=== PATIENT | male | born 1990 | race Hispanic/Latino ===

== ENCOUNTER 2019-05-27 17:52 | Emergency (ER) | payer SELFPAY ==
[2019-05-27] MEDS ORDERED: DERMABOND SKIN ADHESIVE TOP ONE (19:41)
[2019-05-27] MEDS ORDERED: NA CHLORIDE 0.9% 1,000 ML ONE (21:10)
[2019-05-27 21:46] LABS: Absolute Lymphocytes (CBC) 1.7 K/uL (0.7-4.9); Basophils % 0.4 % (0-1.3); Hematocrit 46.2 % (39.6-49.0); MPV 7.5 fL (7.6-11.3); RBC Red Blood Cell Count 5.07 M/uL (4.33-5.43)
[2019-05-27 22:01] LABS: ALT/SGPT 19 U/L (12-78); AST/SGOT 19 U/L (15-37); Albumin 4.2 g/dL (3.4-5.0); Alkaline Phosphatase 56 U/L (45-117); BUN Blood Urea Nitrogen 12 mg/dL (7-18); Bicarbonate 27 mmol/L (21-32); Bilirubin Direct < 0.1 mg/dL (0-0.2); Bilirubin Total 0.4 mg/dL (0.2-1.0); Glucose Level 92 mg/dL (74-106); Potassium 4.3 mmol/L (3.5-5.1); Protein, Total 7.1 g/dL (6.4-8.2); Sodium Level 146 mmol/L (136-145)
--- NOTE | 2019-05-27 23:15 | ER ---
Nurse's Notes [facility] Name: Kian Martinez Age: 28 yrs Sex: Male : 1990 Arrival Date: 05/27/2019 Time: 17:52 Bed 15 Private MD: Diagnosis: Alcohol abuse;Fall on same level, unspecified;Contusion of nose;Laceration without foreign body of nose Presentation: 05/27 17:53 Presenting complaint: EMS states: He drank approx. 750 mL of whiskey today, normally jl7 only drinks beer. Pt fell from standing and hit face on ground, small lac noted to bridge of nose, abrasion noted to right knee. Transition of care: patient was not received from another setting of care. Onset of symptoms was May 27, 2019. Risk Assessment: Do you want to hurt yourself or someone else? Unable to obtain. Initial Sepsis Screen: Does the patient meet any 2 criteria? No. Patient's initial sepsis screen is negative. Does the patient have a suspected source of infection? No. Patient's initial sepsis screen is negative. Care prior to arrival: Medication(s) given: Normal saline infusion, 500 mL, IV initiated. 18 GA, in the left antecubital area, Glucose check: 109. 17:53 Method Of Arrival: EMS: [facility] 17:53 Acuity: OPAL 3 jl7 Triage Assessment: 17:58 General: Appears. jl7 Historical: - Allergies: 17:58 laxatives; jl7 - PMHx: 17:58 ADD/ADHD; Anxiety; Depression; jl7 - PSHx: 17:58 None; jl7 - Immunization history:: Adult Immunizations unknown, Last tetanus immunization: unknown. - Ebola Screening: : No symptoms or risks identified at this time. - Social history:: Smoking status: Patient/guardian denies using tobacco, Patient uses alcohol, occasionally. Screenin:00 Abuse screen: Denies threats or abuse. Denies injuries from another. Nutritional ph screening: No deficits noted. Tuberculosis screening: No symptoms or risk factors identified. Fall Risk Fall in past 12 months (25 points). No secondary diagnosis (0 pts). IV access (20 points). Ambulatory Aid- None/Bed Rest/Nurse Assist (0 pts). Gait- Impaired (20 pts.). Mental Status- Overestimates/Forgets Limitations (15 pts.). Total Carlos Fall Scale indicates High Risk Score (45 or more points). Fall prevention measures have been instituted. Side Rails Up X 2 Placed Close to Nursing Station Frequent Obs/Assessments Occuring As available patient and family educated on Fall Prevention Program and Strategies. Assessment: 18:30 General: Appears in no apparent distress. comfortable, slender, Behavior is calm, ph cooperative, drowsy, quiet. Pain: Denies pain. Neuro: Level of Consciousness is awake, obeys commands, Oriented to person, place, situation, Pupils are PERRLA. Cardiovascular: Capillary refill < 3 seconds in bilateral fingers Patient's skin is warm and dry. Respiratory: Airway is patent Respiratory effort is even, unlabored, Respiratory pattern is regular, symmetrical. Derm: Skin is healthy with good turgor, Skin is pink, warm \T\ dry. Musculoskeletal: Circulation, motion, and sensation intact. Range of motion: intact in all extremities. Injury Description: Abrasion sustained to right knee Laceration sustained to nose. 19:15 Reassessment: Patient appears in no apparent distress at this time. General: Behavior lp1 is drowsy. Neuro: Level of Consciousness is aroused on verbal stimuli. Oriented to person, place. Cardiovascular: Patient's skin is warm and dry. Respiratory: Respiratory effort is even, unlabored, Breath sounds are clear bilaterally. Derm: Skin is pink, warm \T\ dry. 20:25 Reassessment: Patient to CT via stretcher. lp1 21:10 Reassessment: Provider at bedside to discuss results with patient's mother. lp1 21:30 Reassessment: Patient awake, drowsy, talking with mother at bedside; Urinal given. lp1 21:38 Reassessment: Patient given sandwich and water per request. lp1 22:45 Reassessment: Patient awake, alert x3; steady gait noted; Expresses readiness to go lp1 home; Mother at bedside. Vital Signs: 17:59 BP 116 / 78; Pulse 80; Resp 18; Temp 98.3; Pulse Ox 96% on R/A; ph 19:11 BP 108 / 68; Pulse 85; Resp 16; Pulse Ox 97% on R/A; ph 19:30 BP 101 / 68; Pulse 83; Resp 13; Pulse Ox 94% on R/A; lp1 20:00 BP 100 / 56; Pulse 79; Resp 14; Pulse Ox 96% on R/A; lp1 20:20 BP 95 / 63; Pulse 75; Resp 13; Pulse Ox 96% on R/A; lp1 22:30 BP 90 / 66; Pulse 80; Resp 19; Pulse Ox 95% on R/A; lp1 23:00 BP 112 / 70; Pulse 97; Resp 15; Pulse Ox 99% on R/A; Pain 0/10; lp1 Sirisha Coma Score: 19:34 Eye Response: spontaneous(4). Verbal Response: oriented(5). Motor Response: obeys snw commands(6). Total: 15. ED Course: 17:52 Patient arrived in ED. ph 17:55 Madelin Chi, BELLA is Primary Nurse. ph 17:57 Triage completed. jl7 17:59 Marina Blevins FNP-C is [facility]. snw 17:59 Julio Meek MD is Attending Physician. snw 17:59 Arm band placed on right wrist. jl7 18:00 Patient has correct armband on for positive identification. Placed in gown. Bed in low ph position. Call light in reach. Side rails up X 1. cardiac monitor technician on. Pulse ox on. NIBP on. Door closed. Noise minimized. Warm blanket given. Head of bed elevated. 20:31 CT Head C Spine In Process Unspecified. EDMS 21:15 Maintain EMS IV. Dressing intact. Site clean \T\ dry. Gauge \T\ site: 18g to L AC. lp 1 21:20 Initial lab(s) drawn, by me, sent to lab. lp1 23:15 No provider procedures requiring assistance completed. IV discontinued, No lp1 redness/swelling at site. Pressure dressing applied. Administered Medications: 21:15 Drug: NS 0.9% 1000 ml Route: IV; Rate: 1 bolus; Site: left antecubital; lp1 22:36 Follow up: IV Status: Completed infusion; IV Intake: 1000ml lp1 Intake: 22:36 IV: 1000ml; Total: 1000ml. lp1 Output: 21:38 Urine: 400ml (Voided); Total: 400ml. lp1 Outcome: 23:14 Discharge ordered by . snw 23:15 Discharged to home ambulatory, with family. lp1 23:15 Condition: good 23:15 Discharge instructions given to patient, major assembly lineman, Instructed on discharge instructions, follow up and referral plans. Demonstrated understanding of instructions, follow-up care. 23:20 Patient left the ED. lp1 Signatures: Dispatcher [employer] EDMS Marina Blevins, MACHINE OPERATOR PACKAGING-C MACHINE OPERATOR PACKAGING-Csnw Hillary Hernandez RN RN lp1 Madelin Chi RN RN Karishma Morgan RN RN jl7 Corrections: (The following items were deleted from the chart) 23:41 23:41 Patient left the ED. lp1 lp1
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
[2019-05-28 01:11] VITALS: TEMP 98.3
[2019-05-28 01:20] VITALS: BP 112/70; O2SAT 99
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
== END 2019-05-27 23:41 | disposition home or self-care (01) ==
LOC: ER 17:52
PROC: 0JQ10ZZ Repair Face Subcutaneous Tissue and Fascia, Open Approach (ICD-10-PCS; principal; 2019-05-27)
DX: S01.21XA Laceration without foreign body of nose, initial encounter (principal); F10.10 Alcohol abuse, uncomplicated; W18.30XA Fall on same level, unspecified, initial encounter; Y93.9 Activity, unspecified; Y92.9 Unspecified place or not applicable; Z88.8 Allergy status to other drugs, medicaments and biological substances
CPT/HCPCS: 36415; 70450; 72125; 80048; 80076; 80320; 85025; 96360; 99284; J7030

== ENCOUNTER 2020-03-31 15:48 | Emergency (ER) | payer SELFPAY ==
--- NOTE | 2020-03-31 16:02 | EDPHYS ---
Physician Documentation [facility] Name: Kian Martinez Age: 29 yrs Sex: Male : 1990 Arrival Date: 03/31/2020 Time: 15:49 Bed 24 Private MD: ED Physician Oziel Noel HPI: 03/31 16:04 This 29 yrs old Male presents to ER via Ambulatory with complaints of Foreign kb Body In Ear. 16:04 The patient or guardian reports the patient has a suspected foreign body, of the ear, kb on the right. The reported likely foreign body is ear bud cover. Onset: The symptoms/episode began/occurred this morning. Current symptoms: foreign body sensation. Treatment Prior to Arrival: tried to remove, but couldn't get out. The patient has not experienced similar symptoms in the past. The patient has not recently seen a physician. Historical: - Allergies: 15:59 laxatives; ca1 15:59 poisonIVY; ca1 - PMHx: 15:59 ADD/ADHD; Anxiety; Depression; ca1 - PSHx: 15:59 None; ca1 - Immunization history:: Adult Immunizations up to date. - Social history:: Smoking status: Patient reports the use of cigarette tobacco products, smokes one pack cigarettes per day. ROS: 16:02 Constitutional: Negative for fever, chills, and weight loss, Cardiovascular: Negative kb for chest pain, palpitations, and edema, Respiratory: Negative for shortness of breath, cough, wheezing, and pleuritic chest pain, Abdomen/GI: Negative for abdominal pain, nausea, vomiting, diarrhea, and constipation, MS/Extremity: Negative for injury and deformity, Skin: Negative for injury, rash, and discoloration, Neuro: Negative for headache, weakness, numbness, tingling, and seizure. 16:02 ENT: Positive for foreign body sensation. Exam: 16:02 Constitutional: This is a well developed, well nourished patient who is awake, alert, kb and in no acute distress. Head/Face: Normocephalic, atraumatic. Chest/axilla: Normal chest wall appearance and motion. Nontender with no deformity. No lesions are appreciated. Cardiovascular: Regular rate and rhythm with a normal S1 and S2. No gallops, murmurs, or rubs. Normal PMI, no JVD. No pulse deficits. Respiratory: Lungs have equal breath sounds bilaterally, clear to auscultation and percussion. No rales, rhonchi or wheezes noted. No increased work of breathing, no retractions or nasal flaring. Abdomen/GI: Soft, non-tender, with normal bowel sounds. No distension or tympany. No guarding or rebound. No evidence of tenderness throughout. Skin: Warm, dry with normal turgor. Normal color with no rashes, no lesions, and no evidence of cellulitis. MS/ Extremity: Pulses equal, no cyanosis. Neurovascular intact. Full, normal range of motion. Neuro: Awake and alert, GCS 15, oriented to person, place, time, and situation. Cranial nerves II-XII grossly intact. Motor strength 5/5 in all extremities. Sensory grossly intact. Cerebellar exam normal. Normal gait. 16:02 ENT: Ear canal(s): foreign body, ear bud cover, in the right external ear canal. Vital Signs: 15:57 BP 126 / 100; Pulse 94; Resp 15 S; Temp 98.7(TE); Pulse Ox 97% on R/A; Weight 68.04 kg ca1 (R); Height 5 ft. 10 in. (177.80 cm) (R); 15:57 Body Mass Index 21.52 (68.04 kg, 177.80 cm) ca1 Procedures: 16:02 Foreign Body Removal: ear bud cover, from the right ear canal, by using alligator kb clamps, The patient tolerated the removal well. MDM: 15:57 Patient medically screened. 16:02 Data reviewed: vital signs, nurses notes. Data interpreted: Pulse oximetry: on room air kb is 97 %. Interpretation: normal. Administered Medications: No medications were administered Disposition: 16:24 Co-signature as Attending Physician, Oziel Noel MD I agree with the assessment and kdr plan of care. Disposition: 03/31/20 16:02 Discharged to Home. Impression: Foreign body in right ear. - Condition is Stable. - Discharge Instructions: Ear Foreign Body, [id number]. - Medication Reconciliation Form, Thank You Letter, Antibiotic Education, Prescription Opioid Use form. - Follow up: Private Physician; When: As needed. Follow up: Emergency Department; When: As needed; Reason: Worsening of condition. Signatures: Verna Nguyễn FNP-C SAP SECURITY ARCHITECT-Ckb Oziel Noel MD MD [facility] Cayla Ray RN RN ca1 Selina Contreras RN RN ks7 Corrections: (The following items were deleted from the chart) 16:07 16:02 03/31/2020 16:02 Discharged to Home. Impression: Foreign body in right ear. ks7 Condition is Stable. Forms are Medication Reconciliation Form, Thank You Letter, Antibiotic Education, Prescription Opioid Use. Follow up: Private Physician; When: As needed. Follow up: Emergency Department; When: As needed; Reason: Worsening of condition. kb
--- NOTE | 2020-03-31 16:02 | ER ---
Nurse's Notes [facility] Name: Kian Martinez Age: 29 yrs Sex: Male : 1990 Arrival Date: 03/31/2020 Time: 15:49 Bed 24 Private MD: Diagnosis: Foreign body in right ear Presentation: 03/31 15:57 Chief complaint: Patient states: Earbud in R ear since 0700 this morning. Coronavirus ca1 screen: Client denies travel out of the [place] in the last 14 days. At this time, the client does not indicate any symptoms associated with coronavirus-19. Ebola Screen: Patient negative for fever greater than or equal to 101.5 degrees Fahrenheit, and additional compatible Ebola Virus Disease symptoms Patient denies exposure to infectious person. Patient denies travel to an Ebola-affected area in the 21 days before illness onset. No symptoms or risks identified at this time. Initial Sepsis Screen: Does the patient meet any 2 criteria? No. Patient's initial sepsis screen is negative. Does the patient have a suspected source of infection? No. Patient's initial sepsis screen is negative. Risk Assessment: Do you want to hurt yourself or someone else? Patient reports no desire to harm self or others. Onset of symptoms was March 31, 2020. 15:57 Method Of Arrival: Ambulatory ca1 15:57 Acuity: OPAL 5 ca1 Historical: - Allergies: 15:59 laxatives; ca1 15:59 poisonIVY; ca1 - PMHx: 15:59 ADD/ADHD; Anxiety; Depression; ca1 - PSHx: 15:59 None; ca1 - Immunization history:: Adult Immunizations up to date. - Social history:: Smoking status: Patient reports the use of cigarette tobacco products, smokes one pack cigarettes per day. Screenin:01 Abuse screen: Denies threats or abuse. Denies injuries from another. Nutritional ks7 screening: No deficits noted. Tuberculosis screening: No symptoms or risk factors identified. Fall Risk None identified. Assessment: 16:01 General: Appears in no apparent distress. Behavior is calm, cooperative. Pain: Denies ks7 pain. EENT: Ear canal w/ foreign body noted from right ear Reports headphone earbud stuck in pt R ear. he fell asleep with headphones on. Vital Signs: 15:57 BP 126 / 100; Pulse 94; Resp 15 S; Temp 98.7(TE); Pulse Ox 97% on R/A; Weight 68.04 kg ca1 (R); Height 5 ft. 10 in. (177.80 cm) (R); 15:57 Body Mass Index 21.52 (68.04 kg, 177.80 cm) ca1 ED Course: 15:49 Patient arrived in ED. ag5 15:54 Selina Contreras, RN is Primary Nurse. ks7 15:57 Verna Nguyễn FNP-C is [facility]. kb 15:57 Oziel Noel MD is Attending Physician. kb 15:58 Triage completed. ca1 15:59 Arm band placed on right wrist. ca1 16:01 Nurse Practitioner and/or Physician Steam Box Operator to see patient. ENVIRONMENTAL TECH at bedside, used ks7 otoscope and foreceps to remove earbud from R ear canal. earbud intact. given to pt. no s/s of injury. 16:01 Patient has correct armband on for positive identification. Bed in low position. Call ks7 light in reach. Side rails up X 1. 16:01 No provider procedures requiring assistance completed. Patient did not have IV access ks7 during this emergency room visit. Administered Medications: No medications were administered Outcome: 16:02 Discharge ordered by . kb 16:05 Discharged to home ambulatory. ks7 16:05 Condition: good 16:05 Discharge instructions given to patient, Instructed on discharge instructions, Demonstrated understanding of instructions. 16:07 Patient left the ED. ks7 Signatures: Verna Nguyễn FNP-C FNP-Ckb Acob, Cheryl, RN RN ca1 Zahra Gonzalez 5 Selina Contreras, BELLA RN ks7
[2020-03-31 16:14] VITALS: BP 126/100; TEMP 98.7; O2SAT 97
== END 2020-03-31 16:07 | disposition home or self-care (01) ==
LOC: ER 15:48
PROC: 09C3XZZ Extirpation of Matter from Right External Auditory Canal, External Approach (ICD-10-PCS; principal; 2020-03-31)
DX: T16.1XXA Foreign body in right ear, initial encounter (principal); F17.210 Nicotine dependence, cigarettes, uncomplicated; Z88.8 Allergy status to other drugs, medicaments and biological substances; Z91.048 Other nonmedicinal substance allergy status
CPT/HCPCS: 99281

== ENCOUNTER 2020-08-15 | Emergency (ER) | payer SELFPAY ==
--- NOTE | 2020-08-15 17:34 | ER ---
Nurse's Notes [facility] Name: Kian Martinez Age: 29 yrs Sex: Male : 1990 Arrival Date: 08/15/2020 Time: 17:10 Bed Waiting Private MD: Diagnosis: Allergic contact dermatitis due to plants, except food Presentation: 08/15 17:30 Chief complaint: Patient states: had poison erika on his forearms yesterday and now it iw spread to his hands. Coronavirus screen: At this time, the client does not indicate any symptoms associated with coronavirus-19. Ebola Screen: Patient negative for fever greater than or equal to 101.5 degrees Fahrenheit, and additional compatible Ebola Virus Disease symptoms Patient denies exposure to infectious person. Patient denies travel to an Ebola-affected area in the 21 days before illness onset. No symptoms or risks identified at this time. Initial Sepsis Screen: Does the patient meet any 2 criteria? No. Patient's initial sepsis screen is negative. Does the patient have a suspected source of infection? No. Patient's initial sepsis screen is negative. Risk Assessment: Do you want to hurt yourself or someone else? Patient reports no desire to harm self or others. Onset of symptoms was August 14, 2020. 17:30 Method Of Arrival: Ambulatory iw 17:30 Acuity: OPAL 5 iw Historical: - Allergies: 17:31 poisonIVY; iw 17:31 laxatives; iw - Home Meds: 17:31 None [Active]; iw - PMHx: 17:31 ADD/ADHD; Anxiety; Depression; iw - PSHx: 17:31 None; iw - Immunization history:: Adult Immunizations unknown. - Social history:: Smoking status: Patient reports the use of cigarette tobacco products, smokes one pack cigarettes per day. Screenin:33 Abuse screen: Denies threats or abuse. Denies injuries from another. Nutritional iw screening: No deficits noted. Tuberculosis screening: No symptoms or risk factors identified. Fall Risk None identified. Assessment: 17:32 General: Appears in no apparent distress. Behavior is calm, cooperative. Pain: Denies iw pain. Neuro: Level of Consciousness is awake, alert, obeys commands, Oriented to person, place, time, situation, Moves all extremities. Full function. Cardiovascular: Capillary refill < 3 seconds in bilateral fingers Patient's skin is warm and dry. Respiratory: Respiratory effort is even, unlabored, Respiratory pattern is regular, symmetrical. GI: Abdomen is flat. Derm: Skin is intact, is healthy with good turgor. Derm: Rash noted that is on right hand, left hand, right arm and left arm. Musculoskeletal: Range of motion: intact in all extremities. Vital Signs: 17:31 BP 129 / 83; Pulse 99; Resp 16; Temp 98.1; Pulse Ox 98% on R/A; Weight 72.57 kg; Height iw 5 ft. 10 in. (177.80 cm); 17:31 Body Mass Index 22.96 (72.57 kg, 177.80 cm) iw ED Course: 17:10 Patient arrived in ED. rg4 17:29 Verna Nguyễn FNP-C [facility]. kb 17:29 Oziel Noel MD is Attending Physician. kb 17:31 Triage completed. iw 17:32 Arm band placed on. iw 17:33 No provider procedures requiring assistance completed. Patient did not have IV access iw during this emergency room visit. 17:35 Patient has correct armband on for positive identification. iw 17:37 Caryn Roemro, RN is Primary Nurse. iw Administered Medications: No medications were administered Outcome: 17:33 Discharge ordered by MD. kb 17:37 Discharged to home ambulatory. iw 17:37 Condition: good 17:37 Discharge instructions given to patient, Instructed on discharge instructions, follow up and referral plans. medication usage, Demonstrated understanding of instructions, follow-up care, medications, Prescriptions given X 2. 17:37 Patient left the ED. iw Signatures: Verna Nguyễn FNP-C FNP-Caryn Lyman, RN RN Manasa Miranda rg4
--- NOTE | 2020-08-15 17:34 | EDPHYS ---
Physician Documentation [facility] Name: Kian Martinze Age: 29 yrs Sex: Male : 1990 Arrival Date: 08/15/2020 Time: 17:10 Bed Waiting Private MD: ED Physician Oziel Noel HPI: 08/15 17:37 This 29 yrs old Male presents to ER via Ambulatory with complaints of Poison kb Colleen. 17:37 The patient's rash thought to be caused by Contact allergy. The rash is located on the kb right hand, left hand, right arm and left arm. The rash can be described as macular, papular. Onset: The symptoms/episode began/occurred yesterday. Associated signs and symptoms: Pertinent positives: itching. Severity of symptoms: At their worst the symptoms were mild in the emergency department the symptoms are unchanged. The patient has not experienced similar symptoms in the past. The patient has not recently seen a physician. Pt reports he got into poison colleen. Rash started on arms and has started spreading. Historical: - Allergies: 17:31 poisonIVY; iw 17:31 laxatives; iw - Home Meds: 17:31 None [Active]; iw - PMHx: 17:31 ADD/ADHD; Anxiety; Depression; iw - PSHx: 17:31 None; iw - Immunization history:: Adult Immunizations unknown. - Social history:: Smoking status: Patient reports the use of cigarette tobacco products, smokes one pack cigarettes per day. ROS: 17:36 Constitutional: Negative for fever, chills, and weight loss, Cardiovascular: Negative kb for chest pain, palpitations, and edema, Respiratory: Negative for shortness of breath, cough, wheezing, and pleuritic chest pain, Abdomen/GI: Negative for abdominal pain, nausea, vomiting, diarrhea, and constipation, MS/Extremity: Negative for injury and deformity, Neuro: Negative for headache, weakness, numbness, tingling, and seizure. 17:36 Skin: Positive for rash, of the right arm and left arm. Exam: 17:36 Constitutional: This is a well developed, well nourished patient who is awake, alert, kb and in no acute distress. Head/Face: Normocephalic, atraumatic. Chest/axilla: Normal chest wall appearance and motion. Nontender with no deformity. No lesions are appreciated. Cardiovascular: Regular rate and rhythm with a normal S1 and S2. No gallops, murmurs, or rubs. Normal PMI, no JVD. No pulse deficits. Respiratory: Lungs have equal breath sounds bilaterally, clear to auscultation and percussion. No rales, rhonchi or wheezes noted. No increased work of breathing, no retractions or nasal flaring. Abdomen/GI: Soft, non-tender, with normal bowel sounds. No distension or tympany. No guarding or rebound. No evidence of tenderness throughout. MS/ Extremity: Pulses equal, no cyanosis. Neurovascular intact. Full, normal range of motion. Neuro: Awake and alert, GCS 15, oriented to person, place, time, and situation. Cranial nerves II-XII grossly intact. Motor strength 5/5 in all extremities. Sensory grossly intact. Cerebellar exam normal. Normal gait. 17:36 Skin: consistent with contact dermatitis, on the right hand, left hand, right arm and left arm. Vital Signs: 17:31 BP 129 / 83; Pulse 99; Resp 16; Temp 98.1; Pulse Ox 98% on R/A; Weight 72.57 kg; Height iw 5 ft. 10 in. (177.80 cm); 17:31 Body Mass Index 22.96 (72.57 kg, 177.80 cm) iw MDM: 17:33 Patient medically screened. kb 17:36 Data reviewed: vital signs, nurses notes. Data interpreted: Pulse oximetry: on room air kb is 98 %. Interpretation: normal. Counseling: I had a detailed discussion with the patient and/or guardian regarding: the historical points, exam findings, and any diagnostic results supporting the discharge/admit diagnosis, the need for outpatient follow up, a family practitioner, to return to the emergency department if symptoms worsen or persist or if there are any questions or concerns that arise at home. Administered Medications: No medications were administered Disposition: 08/16 06:31 Co-signature as Attending Physician, Oziel Noel MD I agree with the assessment and kdr plan of care. Disposition: 08/15/20 17:33 Discharged to Home. Impression: Allergic contact dermatitis due to plants, except food. - Condition is Stable. - Discharge Instructions: Poison Colleen Dermatitis, Enie-hy-Weco, Contact Dermatitis, [id number]. - Prescriptions for Pepcid 20 mg Oral Tablet - take 1 tablet by ORAL route every 12 hours for 5 days; 10 tablet. Prednisone 20 mg Oral Tablet - take 1 tablet by ORAL route once daily for 5 days; 5 tablet. - Medication Reconciliation Form, Thank You Letter, Antibiotic Education, Prescription Opioid Use form. - Follow up: Emergency Department; When: As needed; Reason: Worsening of condition. Follow up: Private Physician; When: 2 - 3 days; Reason: Recheck today's complaints, Continuance of care, Re-evaluation by your physician. Signatures: Verna Nguyễn, CRYSTAL FINISHER-C CRYSTAL FINISHER-Oziel Frazier MD MD kdr Caryn Romero RN RN iw Corrections: (The following items were deleted from the chart) 08/15 17:37 17:33 08/15/2020 17:33 Discharged to Home. Impression: Allergic contact dermatitis due iw to plants, except food. Condition is Stable. Forms are Medication Reconciliation Form, Thank You Letter, Antibiotic Education, Prescription Opioid Use. Follow up: Emergency Department; When: As needed; Reason: Worsening of condition. Follow up: Private Physician; When: 2 - 3 days; Reason: Recheck today's complaints, Continuance of care, Re-evaluation by your physician. kb
== END 2020-08-15 17:37 | disposition home or self-care (01) ==
CPT/HCPCS: 99282

== ENCOUNTER 2021-02-14 20:59 | Emergency (ER) | payer SELFPAY ==
--- NOTE | 2021-02-14 21:49 | ER ---
Nurse's Notes [facility] Name: Kian Martinez Age: 30 yrs Sex: Male : 1990 Arrival Date: 02/14/2021 Time: 21:03 Bed 14 Private MD: Diagnosis: Foreign body in ear Presentation: 02/14 21:15 Chief complaint: Patient states: had a plastic piece from an ear bud stuck in the RIGHT em ear since yesterday. Coronavirus screen: Client denies travel out of the [place] in the last 14 days. Ebola Screen: Patient negative for fever greater than or equal to 101.5 degrees Fahrenheit, and additional compatible Ebola Virus Disease symptoms Patient denies exposure to infectious person. Patient denies travel to an Ebola-affected area in the 21 days before illness onset. No symptoms or risks identified at this time. Initial Sepsis Screen: Does the patient meet any 2 criteria? No. Patient's initial sepsis screen is negative. Does the patient have a suspected source of infection? No. Patient's initial sepsis screen is negative. Risk Assessment: Do you want to hurt yourself or someone else? Patient reports no desire to harm self or others. Onset of symptoms was February 14, 2021. 21:15 Method Of Arrival: Ambulatory em 21:15 Acuity: OPAL 5 em Historical: - Allergies: 21:17 laxatives; em 21:17 poisonIVY; em - PMHx: 21:17 ADD/ADHD; Anxiety; Depression; em - PSHx: 21:17 None; em - Immunization history:: Adult Immunizations up to date. - Social history:: Smoking status: Patient denies any tobacco usage or history of. Screenin:20 Abuse screen: Denies threats or abuse. Denies injuries from another. Nutritional ca1 screening: No deficits noted. Tuberculosis screening: No symptoms or risk factors identified. Fall Risk None identified. Assessment: 21:20 General: Appears in no apparent distress. comfortable, Behavior is calm, cooperative, ca1 appropriate for age. Pain: Complains of pain in right ear lobe, right preauricular area and right mastoid area Pain currently is 3 out of 10 on a pain scale. Pain began 1 day ago. Neuro: Level of Consciousness is awake, alert, obeys commands, Oriented to person, place, time. EENT: Tympanic membrane clear on left ear not visualized right ear Ear canal clear on left ear w/ foreign body noted from right ear. Derm: Skin is intact, is healthy with good turgor, Skin is pink, warm \T\ dry. Musculoskeletal: Circulation, motion, and sensation intact. Capillary refill < 3 seconds. Vital Signs: 21:15 BP 133 / 84; Pulse 79; Resp 18; Temp 97.7; Pulse Ox 99% on R/A; Weight 70.76 kg; Height em 5 ft. 9 in. (175.26 cm); Pain 3/10; 21:15 Body Mass Index 23.04 (70.76 kg, 175.26 cm) em ED Course: 21:03 Patient arrived in ED. es 21:16 Triage completed. em 21:16 Cayla Ray RN is Primary Nurse. ca1 21:17 Sreekanth Coats PA is PHCP. jr8 21:17 Julio Meek MD is Attending Physician. jr8 21:17 Arm band placed on. em 21:20 Patient has correct armband on for positive identification. Bed in low position. Call ca1 light in reach. Side rails up X 1. Pulse ox on. NIBP on. 21:31 Removal of Foreign body removed earbud from right ear canal. using Alligator clamps, ca1 Patient tolerated well. 21:32 No provider procedures requiring assistance completed. ca1 21:51 Patient did not have IV access during this emergency room visit. em Administered Medications: No medications were administered Outcome: 21:48 Discharge ordered by . jrSerg 21:51 Discharged to home ambulatory. em 21:51 Condition: stable 21:51 Discharge instructions given to patient, Instructed on discharge instructions, follow up and referral plans. Demonstrated understanding of instructions, follow-up care. 21:52 Patient left the ED. em Signatures: Manda Shore Edgar, RN RN em Sreekanth Coats PA PA jr8 Cayla Ray RN RN ca1 Corrections: (The following items were deleted from the chart) 21:29 21:20 EENT: Tympanic membrane clear on left ear and right ear Ear canal clear on left ca1 ear and right ear ca1
--- NOTE | 2021-02-14 21:49 | EDPHYS ---
Physician Documentation [facility] Name: Kian Martinez Age: 30 yrs Sex: Male : 1990 Arrival Date: 02/14/2021 Time: 21:03 Bed 14 Private MD: ED Physician Julio Meek HPI: 02/14 21:58 This 30 yrs old Male presents to ER via Ambulatory with complaints of Foreign jr8 Body In Ear. 21:58 The patient presents with a foreign body sensation, stuck earbud . The complaints jr8 affect the right ear. Onset: The symptoms/episode began/occurred acutely, yesterday. Modifying factors: The symptoms are alleviated by nothing, the symptoms are aggravated by nothing. Associated signs and symptoms: The patient has no apparent associated signs or symptoms. Severity of symptoms: At their worst the symptoms were very mild in the emergency department the symptoms are unchanged. The patient has not experienced similar symptoms in the past. The patient has not recently seen a physician. stated that he got an ear bud stuck in ear and cannot get it out . Historical: - Allergies: 21:17 laxatives; em 21:17 poisonIVY; em - PMHx: 21:17 ADD/ADHD; Anxiety; Depression; em - PSHx: 21:17 None; em - Immunization history:: Adult Immunizations up to date. - Social history:: Smoking status: Patient denies any tobacco usage or history of. ROS: 21:58 Constitutional: Negative for fever, chills, and weight loss. jr8 21:58 ENT: Positive for foreign body sensation. 21:58 All other systems are negative. Exam: 21:58 Constitutional: This is a well developed, well nourished patient who is awake, alert, jr8 and in no acute distress. Cardiovascular: Regular rate and rhythm with a normal S1 and S2. No gallops, murmurs, or rubs. Normal PMI, no JVD. No pulse deficits. Respiratory: Lungs have equal breath sounds bilaterally, clear to auscultation and percussion. No rales, rhonchi or wheezes noted. No increased work of breathing, no retractions or nasal flaring. Skin: Warm, dry with normal turgor. Normal color with no rashes, no lesions, and no evidence of cellulitis. MS/ Extremity: Pulses equal, no cyanosis. Neurovascular intact. Full, normal range of motion. Neuro: Awake and alert, GCS 15, oriented to person, place, time, and situation. Motor strength 5/5 in all extremities. Sensory grossly intact. 21:58 ENT: External ear(s): are unremarkable, Ear canal(s): foreign body, ear bud, in the right external ear canal, Examination of the other ear shows no obvious abnormality, Nose: is normal, Mouth: is normal, Posterior pharynx: is normal. Vital Signs: 21:15 BP 133 / 84; Pulse 79; Resp 18; Temp 97.7; Pulse Ox 99% on R/A; Weight 70.76 kg; Height em 5 ft. 9 in. (175.26 cm); Pain 3/10; 21:15 Body Mass Index 23.04 (70.76 kg, 175.26 cm) em Procedures: 21:58 Foreign Body Removal: ear bud, from the right ear canal, by using alligator clamps, jr8 Dressing: none, The patient tolerated the removal well. MDM: 21:17 Patient medically screened. jr8 21:47 Data reviewed: vital signs, nurses notes, and as a result, I will discharge patient. jr8 Data interpreted: Pulse oximetry: on room air is 99 %. Interpretation: normal. Counseling: I had a detailed discussion with the patient and/or guardian regarding: the historical points, exam findings, and any diagnostic results supporting the discharge/admit diagnosis, the need for outpatient follow up, a family practitioner, to return to the emergency department if symptoms worsen or persist or if there are any questions or concerns that arise at home. Administered Medications: No medications were administered Disposition: 02/15 11:20 Co-signature as Attending Physician, Julio Meek MD I agree with the assessment and [facility] plan of care. Disposition: 02/14/21 21:48 Discharged to Home. Impression: Foreign body in ear. - Condition is Stable. - Discharge Instructions: Ear Foreign Body. - Medication Reconciliation Form, Thank You Letter, Antibiotic Education, Prescription Opioid Use form. - Follow up: Private Physician; When: As needed; Reason: Recheck today's complaints, Continuance of care, Re-evaluation by your physician. - Problem is new. - Symptoms have improved. Signatures: Julio Meek MD MD cha Munoz, Edgar RN RN em Sreekanth Coats PA PA jr8 Corrections: (The following items were deleted from the chart) 02/14 21:52 21:48 02/14/2021 21:48 Discharged to Home. Impression: Foreign body in ear. Condition em is Stable. Forms are Medication Reconciliation Form, Thank You Letter, Antibiotic Education, Prescription Opioid Use. Follow up: Private Physician; When: As needed; Reason: Recheck today's complaints, Continuance of care, Re-evaluation by your physician. Problem is new. Symptoms have improved. jr8
[2021-02-14 22:07] VITALS: BP 133/84; TEMP 97.7; O2SAT 99
== END 2021-02-14 21:52 | disposition home or self-care (01) ==
LOC: ER 20:59
PROC: 09C3XZZ Extirpation of Matter from Right External Auditory Canal, External Approach (ICD-10-PCS; principal; 2021-02-14)
DX: T16.1XXA Foreign body in right ear, initial encounter (principal); Z88.8 Allergy status to other drugs, medicaments and biological substances
CPT/HCPCS: 99283

== ENCOUNTER 2021-05-08 16:42 | Emergency (ER) | payer SELFPAY ==
--- NOTE | 2021-05-08 17:22 | EDPHYS ---
Physician Documentation [facility] Name: Kian Martinez Age: 30 yrs Sex: Male : 1990 Arrival Date: 05/08/2021 Time: 16:45 Bed 28 Private MD: ED Physician Julio Meek HPI: 05/08 17:30 This 30 yrs old Male presents to ER via Ambulatory with complaints of Foreign jr8 Body In Eye. 17:30 The patient is experiencing burning, pain, redness, tearing. Onset: The jr8 symptoms/episode began/occurred acutely, yesterday. Duration: the symptoms are continuous. Aggravated by light, pressure, rubbing. Associated signs and symptoms: Pertinent positives: None. Patient does not utilize any form of vision correction. Severity of symptoms: At their worst the symptoms were moderate in the emergency department the symptoms are unchanged. The patient has not experienced similar symptoms in the past. The patient has not recently seen a physician. This is a 30-year-old male patient that presented emergency room for continued eye pain. Stated that he was hit in the eye with a blade of grass while weed eating yesterday. Since then has had pain with redness, photophobia, tearing.. Historical: - Allergies: 17:01 laxatives; aa5 17:01 poisonIVY; aa5 - PMHx: 17:01 ADD/ADHD; Anxiety; Depression; aa5 - Immunization history:: Last tetanus immunization: < 10 years ago. - Social history:: Smoking status: Patient reports the use of cigarette tobacco products, denies chronic smoking, but will smoke occasionally. ROS: 17:30 ENT: Negative for injury, pain, and discharge, Neck: Negative for injury, pain, and jr8 swelling, Cardiovascular: Negative for chest pain, palpitations, and edema, Respiratory: Negative for shortness of breath, cough, wheezing, and pleuritic chest pain, Abdomen/GI: Negative for abdominal pain, nausea, vomiting, diarrhea, and constipation, Back: Negative for injury and pain, MS/Extremity: Negative for injury and deformity, Skin: Negative for injury, rash, and discoloration, Neuro: Negative for headache, weakness, numbness, tingling, and seizure. 17:30 Eyes: Positive for pain, redness, tearing, of the left eye. Exam: 17:30 Constitutional: This is a well developed, well nourished patient who is awake, alert, jr8 and in no acute distress. Cardiovascular: Regular rate and rhythm with a normal S1 and S2. No gallops, murmurs, or rubs. Normal PMI, no JVD. No pulse deficits. Respiratory: Lungs have equal breath sounds bilaterally, clear to auscultation and percussion. No rales, rhonchi or wheezes noted. No increased work of breathing, no retractions or nasal flaring. Skin: Warm, dry with normal turgor. Normal color with no rashes, no lesions, and no evidence of cellulitis. MS/ Extremity: Pulses equal, no cyanosis. Neurovascular intact. Full, normal range of motion. Neuro: Awake and alert, GCS 15, oriented to person, place, time, and situation. Motor strength 5/5 in all extremities. Sensory grossly intact. 17:30 Eyes: Periorbital structures: appear normal, Pupils: equal, round, and reactive to light and accomodation, Extraocular movements: intact throughout, Conjunctiva: injected, in the left eye, tearing noted, in left eye, Corneas: abrasion, that is moderate sized, approximately 10 mm(s), on the left, at 1 o'clock, a fluorescein strip employed to appreciate the findings, Anterior chamber: normal, Lids and lashes: appear normal, Examination of the other eye reveals no obvious gross abnormality. Vital Signs: 17:01 BP 136 / 82; Pulse 73; Resp 18 S; Temp 97.7(TE); Pulse Ox 99% on R/A; Weight 72.57 kg aa5 (R); Height 5 ft. 10 in. (177.80 cm) (R); 17:23 BP 132 / 88; Pulse 70; Resp 18; Pulse Ox 100% ; Pain 0/10; ld1 17:01 Body Mass Index 22.96 (72.57 kg, 177.80 cm) aa5 Procedures: 17:30 Eye Exam: Utilized via 2 drops to left eye. Fluorescein stain was then put in the left jr8 eye. Approximately 10 mm left corneal abrasion noted without pooling and nothing had entered into the anterior chamber. MDM: 17:05 Patient medically screened. jr8 17:19 Data reviewed: vital signs, nurses notes, and as a result, I will discharge patient. jr8 Data interpreted: Pulse oximetry: on room air is 99 %. Interpretation: normal. Counseling: I had a detailed discussion with the patient and/or guardian regarding: the historical points, exam findings, and any diagnostic results supporting the discharge/admit diagnosis, lab results, the need for outpatient follow up, an opthalmologist, to return to the emergency department if symptoms worsen or persist or if there are any questions or concerns that arise at home. Administered Medications: No medications were administered Disposition: 05/09 06:41 Co-signature as Attending Physician, Julio Meek MD I agree with the assessment and jeison plan of care. Disposition Summary: 05/08/21 17:21 Discharge Ordered Location: Home jr8 Problem: new jr8 Symptoms: have improved jr8 Condition: Stable jr8 Diagnosis - Injury of conjunctiva and corneal abrasion without foreign body, left eye jr8 Followup: jr8 - With: Bjorn Vega MD - When: 2 - 3 days - Reason: Recheck today's complaints, Continuance of care, Re-evaluation by your physician Discharge Instructions: - Discharge Summary Sheet jr8 - Corneal Abrasion jr8 Forms: - Medication Reconciliation Form jr8 - Thank You Letter jr8 - Antibiotic Education jr8 - Prescription Opioid Use jr8 Prescriptions: - Gentamicin 0.3 % Ophthalmic Drops - instill 2 drops by OPHTHALMIC route every 4 hours for 7 days; 1 bottle; jr8 Refills: 0, Product Selection Permitted Signatures: Julio Meek MD MD cha Calderon, Audri, RN RN aa5 Sreekanth Coats PA PA jr8
--- NOTE | 2021-05-08 17:22 | ER ---
Nurse's Notes [facility] Name: Kian Martinez Age: 30 yrs Sex: Male : 1990 Arrival Date: 05/08/2021 Time: 16:45 Bed 28 Private MD: Diagnosis: Injury of conjunctiva and corneal abrasion without foreign body, left eye Presentation: 05/08 17:01 Chief complaint: Patient states: "I was mowing the grass yesterday and something got aa5 into my eye". Coronavirus screen: At this time, the client does not indicate any symptoms associated with coronavirus-19. Ebola Screen: Patient negative for fever greater than or equal to 101.5 degrees Fahrenheit, and additional compatible Ebola Virus Disease symptoms. Initial Sepsis Screen: Does the patient meet any 2 criteria? No. Patient's initial sepsis screen is negative. Does the patient have a suspected source of infection? No. Patient's initial sepsis screen is negative. Risk Assessment: Do you want to hurt yourself or someone else? Patient reports no desire to harm self or others. Onset of symptoms was April 2021. 17:01 Method Of Arrival: Ambulatory aa5 17:01 Acuity: OPAL 4 aa5 Triage Assessment: 17:23 General: Appears in no apparent distress. comfortable, Behavior is calm, cooperative, ld1 appropriate for age. Historical: - Allergies: 17:01 laxatives; aa5 17:01 poisonIVY; aa5 - PMHx: 17:01 ADD/ADHD; Anxiety; Depression; aa5 - Immunization history:: Last tetanus immunization: < 10 years ago. - Social history:: Smoking status: Patient reports the use of cigarette tobacco products, denies chronic smoking, but will smoke occasionally. Screenin:23 Abuse screen: Denies threats or abuse. Denies injuries from another. Nutritional ld1 screening: No deficits noted. Tuberculosis screening: No symptoms or risk factors identified. Fall Risk None identified. Assessment: 17:22 Reassessment: see triage assessment. Pain: Denies pain. ld1 Vital Signs: 17:01 BP 136 / 82; Pulse 73; Resp 18 S; Temp 97.7(TE); Pulse Ox 99% on R/A; Weight 72.57 kg aa5 (R); Height 5 ft. 10 in. (177.80 cm) (R); 17:23 BP 132 / 88; Pulse 70; Resp 18; Pulse Ox 100% ; Pain 0/10; ld1 17:01 Body Mass Index 22.96 (72.57 kg, 177.80 cm) aa5 ED Course: 16:45 Patient arrived in ED. mr 17:01 Arm band placed on. aa5 17:03 Triage completed. aa5 17:05 Sreekanth Coats PA is PHCP. jr8 17:05 Julio Meek MD is Attending Physician. jr8 17:21 Bjorn Vega MD is Referral Physician. jr8 17:23 Patient has correct armband on for positive identification. ld1 17:23 No provider procedures requiring assistance completed. Patient did not have IV access ld1 during this emergency room visit. Administered Medications: No medications were administered Outcome: 17:21 Discharge ordered by . jr8 17:23 Discharged to home ambulatory. ld1 17:23 Condition: stable 17:23 Discharge instructions given to patient, Instructed on discharge instructions, follow up and referral plans. Demonstrated understanding of instructions, follow-up care. 17:23 Patient left the ED. ld1 Signatures: Margaret Rocha mr PiersonDenia, RN RN aa5 Sreekanth Coats PA PA jr8 Anabela Pierce RN RN ld1
[2021-05-08] MEDS ORDERED: TETRACAINE HCL 0.5% 4ML OPTH ONE (17:35)
[2021-05-08] MEDS ORDERED: FLUORESCEIN SODIUM 1 MG/WRAP ONE (17:36)
[2021-05-08 18:03] VITALS: TEMP 97.7
[2021-05-08 18:05] VITALS: BP 132/88; O2SAT 100
== END 2021-05-08 17:23 | disposition home or self-care (01) ==
LOC: ER 16:42
DX: S05.02XA Injury of conjunctiva and corneal abrasion without foreign body, left eye, initial encounter (principal); F17.210 Nicotine dependence, cigarettes, uncomplicated; Z88.8 Allergy status to other drugs, medicaments and biological substances; Z91.048 Other nonmedicinal substance allergy status
CPT/HCPCS: 99281

== ENCOUNTER 2021-07-13 02:23 | Emergency (ER) | payer SELFPAY ==
--- NOTE | 2021-07-13 03:04 | ER ---
Nurse's Notes [facility] Name: Kian Martinez Age: 30 yrs Sex: Male : 1990 Arrival Date: 07/13/2021 Time: 02:24 Bed Waiting Private MD: Diagnosis: ED Course: 07/13 02:24 Patient arrived in ED. bp1 02:43 Patient's name was called from ER lobby. No response. bb 03:04 Patient's name was called from ER lobby. No response. Unable to locate patient. Will bb disposition as left without being seen by a provider. Administered Medications: No medications were administered Outcome: 03:04 Patient left the ED. bb Signatures: Laura Arvizu RN RN bb Arabella Purcell bp1
== END 2021-07-13 03:04 | disposition left against medical advice (07) ==
LOC: ER 02:23
DX: Z02.9 Encounter for administrative examinations, unspecified (principal)

== ENCOUNTER 2022-07-31 18:27 | Emergency (ER) | payer SELFPAY ==
--- NOTE | 2022-07-31 20:51 | RAD REPORT ---
EXAM DESCRIPTION: RAD - Forearm Right - 07/31/2022 8:05 pm CLINICAL HISTORY: pain, fall COMPARISON: <Comparisons>None. FINDINGS: No fracture is identified. There is no dislocation or periosteal reaction noted. No foreign body or other soft tissue abnormality. IMPRESSION: Negative right forearm examination.
--- NOTE | 2022-07-31 21:02 | ER ---
Nurse's Notes [facility] Name: Kian Martinez Age: 31 yrs Sex: Male : 1990 Arrival Date: 07/31/2022 Time: 18:31 Bed 12 Private MD: Diagnosis: Pain in right elbow Presentation: 07/31 18:57 Chief complaint: Patient states: pt was skateboarding about 2-3 days ago and fell back vg1 onto Right elbow. States pain from elbow radiates into hand. Coronavirus screen: Vaccine status: Patient reports receiving the 2nd dose of the covid vaccine. Client denies travel out of the [place] in the last 14 days. Ebola Screen: Patient negative for fever greater than or equal to 101.5 degrees Fahrenheit, and additional compatible Ebola Virus Disease symptoms. Initial Sepsis Screen: Does the patient meet any 2 criteria? No. Patient's initial sepsis screen is negative. Does the patient have a suspected source of infection? No. Patient's initial sepsis screen is negative. Risk Assessment: Do you want to hurt yourself or someone else? Patient reports no desire to harm self or others. Onset of symptoms was July 27, 2022. 18:57 Method Of Arrival: Ambulatory vg1 18:57 Acuity: OPAL 4 vg1 Triage Assessment: 19:00 General: Appears comfortable, Behavior is calm, cooperative. Pain: Complains of pain in vg1 right arm Pain currently is 0 out of 10 on a pain scale. Musculoskeletal: Circulation, motion, and sensation intact. Swelling present in right elbow, right forearm. Historical: - Allergies: 19:00 laxatives; vg1 19:00 poisonIVY; vg1 - PMHx: 19:00 ADD/ADHD; Depression; Anxiety; vg1 - Immunization history:: Client reports receiving the 2nd dose of the Covid vaccine. - Social history:: Smoking status: Patient reports the use of cigarette tobacco products, smokes one pack cigarettes per day. Screenin:15 Abuse screen: Denies threats or abuse. Denies injuries from another. Nutritional ld1 screening: No deficits noted. Tuberculosis screening: No symptoms or risk factors identified. Fall Risk None identified. Assessment: 19:15 Reassessment: Patient appears in no apparent distress at this time. Patient and/or ld1 family updated on plan of care and expected duration. Pain level reassessed. Patient is alert, oriented x 3, equal unlabored respirations, skin warm/dry/pink. See triage assessment. Pain: Complains of pain in right arm. 20:35 Reassessment: Patient appears in no apparent distress at this time. Patient and/or ld1 family updated on plan of care and expected duration. Pain level reassessed. Vital Signs: 18:57 Pulse 78; Resp 14; Temp 98.2; Pulse Ox 98% ; Weight 72.57 kg; Height 5 ft. 10 in. vg1 (177.80 cm); Pain 0/10; 19:00 BP 117 / 87; vg1 19:15 BP 121 / 84; Pulse 76; Resp 16; Pulse Ox 99% on R/A; Pain 4/10; ld1 20:35 Pulse 81; Resp 18; Pulse Ox 99% on R/A; ld1 18:57 Body Mass Index 22.96 (72.57 kg, 177.80 cm) vg1 ED Course: 18:31 Patient arrived in ED. mr 18:59 Tyrell Landaverde PA is PHCP. jmm 18:59 Aditya Dexter MD is Attending Physician. [facility] 19:00 Triage completed. vg1 19:00 Arm band placed on. vg1 19:15 Anabela Pierce, RN is Primary Nurse. ld1 19:15 Patient has correct armband on for positive identification. Bed in low position. Call ld1 light in reach. Side rails up X2. Pulse ox on. NIBP on. Door closed. Noise minimized. 19:15 No provider procedures requiring assistance completed. ld1 20:04 PHCP role handed off by Tyrell Landaverde PA sb4 20:04 Perla Up PA-C is PHCP. sb4 20:07 Forearm Right XRAY In Process Unspecified. EDMS 21:01 Konstantin Licona MD is Referral Physician. sb4 21:03 Patient did not have IV access during this emergency room visit. ld1 Administered Medications: No medications were administered Medication: 19:15 VIS not applicable for this client. ld1 Outcome: 21:01 Discharge ordered by . sb4 21:03 Discharged to home ambulatory. ld1 21:03 Condition: stable 21:03 Discharge instructions given to patient, Instructed on discharge instructions, Demonstrated understanding of instructions. 21:04 Patient left the ED. ld1 Signatures: Dispatcher [employer] EDMS Tyrell Landaverde PA PA jmm Rivera, Margaret mr Melissa Pandey, RN RN vg1 Anabela Pierce RN RN ld1 Perla Up PA-C PA-C sb4
--- NOTE | 2022-07-31 21:02 | EDPHYS ---
Physician Documentation [facility] Name: Kian Martinez Age: 31 yrs Sex: Male : 1990 Arrival Date: 07/31/2022 Time: 18:31 Bed 12 Private MD: ED Physician Aditya Dexter HPI: 07/31 18:59 This 31 yrs old Male presents to ER via Ambulatory with complaints of Arm Injury. jmm 18:59 The patient or guardian complains of injury, pain. Onset: The symptoms/episode jmm began/occurred acutely. Is a 31-year-old male with history of anxiety and depression the presents emerged department after a fall which occurred 4 days ago. Patient states he landed directly on the elbow. Patient states that since he has had swelling and pain which radiates from the elbow into the wrist and hand. Denies other injury. Historical: - Allergies: 19:00 laxatives; vg1 19:00 poisonIVY; vg1 - PMHx: 19:00 ADD/ADHD; Depression; Anxiety; vg1 - Immunization history:: Client reports receiving the 2nd dose of the Covid vaccine. - Social history:: Smoking status: Patient reports the use of cigarette tobacco products, smokes one pack cigarettes per day. ROS: 18:59 Constitutional: Negative for fever, chills, and weight loss, Cardiovascular: Negative jmm for chest pain, palpitations, and edema, Respiratory: Negative for shortness of breath, cough, wheezing, and pleuritic chest pain. 18:59 MS/extremity: Positive for injury or acute deformity. 18:59 All other systems are negative. Exam: 18:59 Constitutional: This is a well developed, well nourished patient who is awake, alert, jmm and in no acute distress. Head/Face: atraumatic. Eyes: EOMI, no conjunctival erythema appreciated ENT: Moist Mucus Membranes Neck: Trachea midline, Supple Chest/axilla: Normal chest wall appearance and motion. Cardiovascular: Regular rate and rhythm. No edema appreciated Respiratory: Normal respirations, no respiratory distress appreciated Abdomen/GI: Non distended Back: Normal ROM 18:59 Musculoskeletal/extremity: Swelling noted to the right olecranon region, full range of motion appreciated, compartments are soft, full radial pulse, full water main inspector strength, mild pain on palpation at the right olecranon. Neurovascular intact. 18:59 Skin: Ecchymosis noted to the right humeral region. 18:59 Neuro: Orientation: is normal, Mentation: is normal, Memory: is normal. 18:59 Psych: Behavior/mood is pleasant, cooperative. Vital Signs: 18:57 Pulse 78; Resp 14; Temp 98.2; Pulse Ox 98% ; Weight 72.57 kg; Height 5 ft. 10 in. vg1 (177.80 cm); Pain 0/10; 19:00 BP 117 / 87; vg1 19:15 BP 121 / 84; Pulse 76; Resp 16; Pulse Ox 99% on R/A; Pain 4/10; ld1 20:35 Pulse 81; Resp 18; Pulse Ox 99% on R/A; ld1 18:57 Body Mass Index 22.96 (72.57 kg, 177.80 cm) vg1 MDM: 18:59 Patient medically screened. [facility] [place] 21:01 Data reviewed: vital signs, radiologic studies, plain films. sb4 12 18:59 Order name: Forearm Right XRAY; Complete Time: 20:54 [facility] Administered Medications: No medications were administered Disposition: 12 07:05 Co-signature as Attending Physician, Aditya Dexter MD. rn Disposition Summary: 07/31/22 21:01 Discharge Ordered Location: Home sb4 Problem: new sb4 Symptoms: have improved sb4 Condition: Stable sb4 Diagnosis - Pain in right elbow sb4 Followup: sb4 - With: Konstantin Licona MD - When: As needed - Reason: Worsening of condition Discharge Instructions: - Discharge Summary Sheet sb4 - Musculoskeletal Pain sb4 - How to Use Cold Therapy, [id number] sb4 Forms: - Medication Reconciliation Form sb4 - Thank You Letter sb4 - Antibiotic Education sb4 - Prescription Opioid Use sb4 Signatures: Dispatcher [employer] EDMS Tyrell Landaverde PA PA jmm Nieto, Roman, MD MD rn Garcia, Victoria, RN RN 1 Perla Up PA-C PA-C sb4 Corrections: (The following items were deleted from the chart) 07/31 20:06 18:59 Elbow Right 3 View+RAD.RAD.BRZ ordered. EDMS EDMS
[2022-08-01 02:21] VITALS: TEMP 98.2
[2022-08-01 02:27] VITALS: BP 121/84; O2SAT 99
== END 2022-07-31 21:04 | disposition home or self-care (01) ==
LOC: ER 18:27
DX: M25.521 Pain in right elbow (principal); F17.210 Nicotine dependence, cigarettes, uncomplicated
CPT/HCPCS: 99283

== ENCOUNTER 2023-06-13 10:21 | Emergency (ER) | payer OTHER ==
--- NOTE | 2023-06-13 10:55 | ER ---
Nurse's Notes [facility] Name: Kian Martinez Age: 32 yrs Sex: Male : 1990 Arrival Date: 06/13/2023 Time: 10:21 Bed IW1 Private MD: Diagnosis: right otitis externa;right otitis media;abrasion to external auditory canal - right ear;right ear pain Presentation: 06/13 10:41 Chief complaint: Bleeding from right ear this morning. Denies pain/fever. Coronavirus hb screen: At this time, the client does not indicate any symptoms associated with coronavirus-19. Ebola Screen: No symptoms or risks identified at this time. Initial Sepsis Screen: Does the patient meet any 2 criteria? No. Patient's initial sepsis screen is negative. Does the patient have a suspected source of infection? No. Patient's initial sepsis screen is negative. Risk Assessment: Do you want to hurt yourself or someone else? Patient reports no desire to harm self or others. Onset of symptoms was June 13, 2023. 10:41 Method Of Arrival: Ambulatory hb 10:41 Acuity: OPAL 4 hb Historical: - Allergies: 10:42 laxatives; hb 10:42 poisonIVY; hb - PMHx: 10:42 ADD/ADHD; Anxiety; Depression; hb - Immunization history:: Adult Immunizations up to date. - Social history:: Smoking status: Patient reports the use of cigarette tobacco products, smokes one-half pack cigarettes per day. - Family history:: not pertinent. - Hospitalizations: : No recent hospitalization is reported. Screenin:42 [facility] ED Fall Risk Assessment (Adult) Score/Fall Risk Level 0 - 2 = Low Risk hb Oriented to surroundings, Maintained a safe environment. Abuse screen: Denies threats or abuse. Denies injuries from another. Nutritional screening: No deficits noted. Tuberculosis screening: No symptoms or risk factors identified. Assessment: 10:42 General: Appears in no apparent distress. Behavior is calm, cooperative. Pain: Denies hb pain. Neuro: Level of Consciousness is awake, alert, obeys commands, Oriented to person, place, time, situation. Cardiovascular: Patient's skin is warm and dry. Respiratory: Respiratory effort is even, unlabored, Respiratory pattern is regular, symmetrical. Vital Signs: 10:41 BP 130 / 84; Pulse 88; Resp 16; Temp 97.7(TE); Pulse Ox 97% ; Weight 81.65 kg; Height 5 hb ft. 10 in. ; Pain 0/10; 10:41 Body Mass Index 25.83 (81.65 kg, 177.8 cm) hb 10:41 Pain Scale: Adult hb ED Course: 10:24 Patient arrived in ED. mr 10:27 Nicolás Hoang MD is Attending Physician. cp3 10:42 Triage completed. hb 10:42 Arm band placed on. hb 10:42 Patient has correct armband on for positive identification. Provided Education on: . hb 10:42 No provider procedures requiring assistance completed. Patient did not have IV access hb during this emergency room visit. 10:53 Evans Blair DO is Referral Physician. cp3 10:54 Referral Physician role handed off by Evans Blair DO cp3 10:54 Evans Blair DO is Referral Physician. cp3 Administered Medications: No medications were administered Medication: 10:42 VIS not applicable for this client. hb Outcome: 10:55 Discharge ordered by . cp3 11:14 Discharged to home ambulatory, hb 11:14 Condition: stable 11:14 Discharge instructions given to patient, Instructed on discharge instructions, follow up and referral plans. medication usage, Demonstrated understanding of instructions, follow-up care, medications, Prescriptions given X 2, 11:15 Patient left the ED. hb Signatures: Nicolás Hoang MD MD cp3 Margaret Rocha, Reg Reg mr YañezterNoemy, RN RN hb
--- NOTE | 2023-06-13 10:55 | EDPHYS ---
Physician Documentation [facility] Name: Kian Martinez Age: 32 yrs Sex: Male : 1990 Arrival Date: 06/13/2023 Time: 10:21 Bed IW1 Private MD: ED Physician Nicolás Hoang HPI: 06/13 10:50 This 32 yrs old Male presents to ER via Ambulatory with complaints of Ear Bleeding. cp3 10:50 Patient is a 32-year-old male with a history of ADHD, anxiety, depression endorses that cp3 he woke up with dried blood on the inner canal of the right ear. Patient denies fever, chills, nausea, vomiting, dizziness, trauma, URI symptoms. The patient endorses that he has infections that you are periodically. Patient endorses he did sleep in his headphones last night which may have triggered the bleeding. No change in. Hearing. Historical: - Allergies: 10:42 laxatives; hb 10:42 poisonIVY; hb - PMHx: 10:42 ADD/ADHD; Anxiety; Depression; hb - Immunization history:: Adult Immunizations up to date. - Social history:: Smoking status: Patient reports the use of cigarette tobacco products, smokes one-half pack cigarettes per day. - Family history:: not pertinent. - Hospitalizations: : No recent hospitalization is reported. ROS: 10:50 Constitutional: Negative for fever, chills, and weight loss, Eyes: Negative for injury, cp3 pain, redness, and discharge, Neck: Negative for injury, pain, and swelling, Cardiovascular: Negative for chest pain, palpitations, and edema, Respiratory: Negative for shortness of breath, cough, wheezing, and pleuritic chest pain, MS/Extremity: Negative for injury and deformity, Skin: Negative for injury, rash, and discoloration, Neuro: Negative for headache, weakness, numbness, tingling, and seizure, Psych: Negative for depression, anxiety, suicide ideation, homicidal ideation, and hallucinations, Allergy/Immunology: Negative for hives, rash, and allergies, Endocrine: Negative for neck swelling, polydipsia, polyuria, polyphagia, and marked weight changes, Hematologic/Lymphatic: Negative for swollen nodes, abnormal bleeding, and unusual bruising, 10:50 ENT: Positive for drainage from ear(s), ear pain, Exam: 10:50 Constitutional: This is a well developed, well nourished patient who is awake, alert, cp3 and in no acute distress. Head/Face: Normocephalic, atraumatic. Eyes: Pupils equal round and reactive to light, extra-ocular motions intact. Lids and lashes normal. Conjunctiva and sclera are non-icteric and not injected. Cornea within normal limits. Periorbital areas with no swelling, redness, or edema. Neck: Trachea midline, no thyromegaly or masses palpated, and no cervical lymphadenopathy. Supple, full range of motion without nuchal rigidity, or vertebral point tenderness. No Meningismus. Chest/axilla: Normal chest wall appearance and motion. Nontender with no deformity. No lesions are appreciated. Cardiovascular: Regular rate and rhythm with a normal S1 and S2. No gallops, murmurs, or rubs. Normal PMI, no JVD. No pulse deficits. Respiratory: Lungs have equal breath sounds bilaterally, clear to auscultation and percussion. No rales, rhonchi or wheezes noted. No increased work of breathing, no retractions or nasal flaring. Skin: Warm, dry with normal turgor. Normal color with no rashes, no lesions, and no evidence of cellulitis. MS/ Extremity: Pulses equal, no cyanosis. Neurovascular intact. Full, normal range of motion. Neuro: Awake and alert, GCS 15, oriented to person, place, time, and situation. Cranial nerves II-XII grossly intact. Motor strength 5/5 in all extremities. Sensory grossly intact. Cerebellar exam normal. Normal gait. Psych: Awake, alert, with orientation to person, place and time. Behavior, mood, and affect are within normal limits. 10:50 ENT: External ear(s): abrasion(s), Dried Blood. erythema, Ear canal(s): erythema, that is moderate, of the right canal, Vital Signs: 10:41 BP 130 / 84; Pulse 88; Resp 16; Temp 97.7(TE); Pulse Ox 97% ; Weight 81.65 kg; Height 5 hb ft. 10 in. ; Pain 0/10; 10:41 Body Mass Index 25.83 (81.65 kg, 177.8 cm) hb 10:41 Pain Scale: Adult hb MDM: 10:27 Patient medically screened. cp3 10:50 Differential diagnosis: otitis media, otitis externa, barotrauma . Data reviewed: vital cp3 signs, nurses notes. I considered the following discharge prescriptions or medication management in the emergency department DC with topical and oral antibiotics. 10:59 ED course: dc with oral/topical antibiotics. discussed plan with patient at bedside. cp3 Administered Medications: No medications were administered Disposition Summary: 06/13/23 10:55 Discharge Ordered Notes: Location: Home cp3 Condition: Stable cp3 Diagnosis - right otitis externa cp3 - right otitis media cp3 - abrasion to external auditory canal - right ear cp3 - right ear pain cp3 Followup: cp3 - With: Evans Blair DO - When: Today - Reason: Followup: cp3 - With: Evans Blair DO - When: As needed - Reason: Discharge Instructions: - Discharge Summary Sheet cp3 - Otitis Media, Adult cp3 - Otitis Externa, [id number] cp3 Forms: - Medication Reconciliation Form cp3 - Thank You Letter cp3 - Antibiotic Education cp3 - Prescription Opioid Use cp3 - Patient Portal Instructions cp3 - Leadership Thank You Letter cp3 Prescriptions: - ofloxacin 0.3 % Otic drops - instill 5 drop OTIC route 2 to 3 times per day for 5 days; 5 milliliter; cp3 Refills: 0, Product Selection Permitted - levofloxacin 500 mg Oral tablet - take 1 tablet ORAL route once daily for 5 days; 5 tablet; Refills: 0, Product cp3 Selection Permitted Signatures: Nicolás Hoang MD MD cp3 Noemy Golden, RN RN hb
[2023-06-13 11:19] VITALS: BP 130/84; TEMP 97.7; O2SAT 97
== END 2023-06-13 11:15 | disposition home or self-care (01) ==
LOC: ER 10:21
DX: H60.91 Unspecified otitis externa, right ear (principal); H66.91 Otitis media, unspecified, right ear; S00.411A Abrasion of right ear, initial encounter; F17.210 Nicotine dependence, cigarettes, uncomplicated
CPT/HCPCS: 99283

== ENCOUNTER 2024-01-16 14:04 | Emergency (ER) | payer OTHER ==
--- NOTE | 2024-01-16 14:46 | EDPHYS ---
Physician Documentation [facility] Name: Kian Martinez Age: 33 yrs Sex: Male : 1990 Arrival Date: 01/16/2024 Time: 14:04 Bed IW1 Private MD: ED Physician Andres Pino HPI: 01/15 14:45 This 33 yrs old Male presents to ER via Ambulatory with complaints of Ear Pain. cp 14:45 The patient presents with drainage, that is purulent, pain, that is acute. The cp complaints affect the left ear. Associated signs and symptoms: Pertinent negatives: cough, fever, sinus trouble, shortness of breath, sore throat, vomiting. Severity of symptoms: in the emergency department the symptoms are unchanged despite home interventions. Historical: - Allergies: 14:37 laxatives; ko1 14:37 poisonIVY; ko1 - PMHx: 14:37 ADD/ADHD; Anxiety; Depression; ko1 - Immunization history:: Adult Immunizations up to date. - Infectious Disease History:: Denies. - Social history:: Smoking status: Patient denies any tobacco usage or history of. ROS: 14:45 Eyes: Negative for injury, pain, redness, and discharge, cp 14:45 Constitutional: Negative for body aches, chills, fever, poor PO intake, 14:45 ENT: Positive for drainage from ear(s), ear pain, Negative for rhinorrhea, sinus congestion, sinus pain, sore throat, 14:45 Respiratory: Negative for cough, shortness of breath, wheezing, 14:45 Abdomen/GI: Negative for abdominal pain, vomiting, diarrhea, constipation, 14:45 Skin: Negative for rash, 14:45 Neuro: Negative for altered mental status, headache, 14:45 All other systems are negative, Exam: 14:45 Constitutional: The patient appears in no acute distress, alert, awake, non-toxic, well cp developed, well nourished, 14:45 Head/Face: Normocephalic, atraumatic. cp 14:45 Eyes: Periorbital structures: appear normal, Conjunctiva: normal, no exudate, no injection, Sclera: no appreciated abnormality, Lids and lashes: appear normal, bilaterally, 14:45 ENT: External ear(s): are unremarkable, Ear canal(s): are normal, clear, TM's: decreased mobility, on the left, erythema, that is mild, on the left, rupture, on the left, with purulent discharge, Nose: is normal, Mouth: Lips: moist, Oral mucosa: pink and intact, moist, Posterior pharynx: Airway: no evidence of obstruction, patent, Tonsils: are normal in appearance, erythema, is not appreciated, exudate, is not appreciated, 14:45 Neck: ROM/movement: is normal, is supple, without pain, no range of motions limitations, 14:45 Chest/axilla: Inspection: normal, 14:45 Cardiovascular: Rate: normal, 14:45 Respiratory: the patient does not display signs of respiratory distress, Respirations: normal, no use of accessory muscles, no retractions, Breath sounds: are clear throughout, no decreased breath sounds, 14:45 Abdomen/GI: Inspection: abdomen appears normal, 14:45 Skin: no rash present. Vital Signs: 14:36 BP 124 / 84; Pulse 72; Resp 18; Temp 98(O); Pulse Ox 100% on R/A; ko1 MDM: 14:42 Patient medically screened. cp 14:45 Differential diagnosis: otitis media, otitis externa, ruptured TM, foreign body, acute cp otalgia, cerumen impaction, barotrauma . 14:45 Data reviewed: vital signs, nurses notes, and as a result, I will discharge patient. cp Counseling: I had a detailed discussion with the patient and/or guardian regarding the historical points, exam findings, and any diagnostic results supporting the discharge/admit diagnosis, the need for outpatient follow up, an ENT specialist, to return to the emergency department if symptoms worsen or persist or if there are any questions or concerns that arise at home. Administered Medications: No medications were administered Disposition Summary: 01/16/24 14:45 Discharge Ordered Notes: Location: Home cp Problem: new cp Symptoms: have improved cp Condition: Stable cp Diagnosis - Acute suppurative otitis media with spontaneous rupture of ear drum, left ear cp Followup: cp - With: Gail Ward MD - When: 1 week - Reason: symptoms continue Discharge Instructions: - Discharge Summary Sheet cp - Ear Drainage cp - Otitis Media, Adult cp Forms: - Medication Reconciliation Form cp - Antibiotic Education cp - Prescription Opioid Use cp - Patient Portal Instructions cp - Leadership Thank You Letter cp Prescriptions: - Augmentin 875-125 mg Oral Tablet - take 1 tablet ORAL route every 12 hours for 10 days; 20 tablet; Refills: 0, cp Product Selection Permitted - Ciprodex 0.3-0.1 % Otic drops, suspension - instill 4 drops OTIC route every 12 hours for 7 days , for ears ONLY; 1 unit; cp Refills: 0, Product Selection Permitted Addendum: 01/20/2024 16:19 I was immediately available on-site in the Emergency Department for consultation in the m s3 care of the patient. Signatures: Julio Alexander, JUSTIN PA Andres Nova DO DO ms3 Nickie Doe RN RN ko1 Corrections: (The following items were deleted from the chart) 01/16 11:01/15 14:50 ENT: Positive for drainage from ear(s), ear pain, Negative for rhinorrhea, cp sinus congestion, sinus pain, sore throat, cp 01/16 11:01/15 14:50 Respiratory: Negative for cough, shortness of breath, wheezing, cp cp 01/16 11:01/15 14:50 Abdomen/GI: Negative for abdominal pain, vomiting, diarrhea, constipation, cp cp 01/16 11:01/15 14:50 Constitutional: Negative for body aches, chills, fever, poor PO intake, cp cp 01/16 11:01/15 14:50 Eyes: Negative for injury, pain, redness, and discharge, cp cp 01/16 11:01/15 14:50 Neuro: Negative for altered mental status, headache, cp cp 01/16 11:01/15 14:50 Skin: Negative for rash, cp cp 01/16 11:01/15 14:50 All other systems are negative, cp cp
--- NOTE | 2024-01-16 14:46 | ER ---
Nurse's Notes [facility] Name: Kian Martinez Age: 33 yrs Sex: Male : 1990 Arrival Date: 01/16/2024 Time: 14:04 Bed IW1 Private MD: Diagnosis: Acute suppurative otitis media with spontaneous rupture of ear drum, left ear Presentation: 01/15 14:36 Chief complaint: Patient states: left ear pain for two days had bleeding today. ko1 Coronavirus screen: At this time, the client does not indicate any symptoms associated with coronavirus-19. Ebola Screen: No symptoms or risks identified at this time. Initial Sepsis Screen: Does the patient meet any 2 criteria? No. Patient's initial sepsis screen is negative. Does the patient have a suspected source of infection? No. Patient's initial sepsis screen is negative. Risk Assessment: Do you want to hurt yourself or someone else? Patient reports no desire to harm self or others. Onset of symptoms is unknown. 14:36 Method Of Arrival: Ambulatory ko1 14:36 Acuity: OPAL 4 ko1 Triage Assessment: 14:37 General: Appears in no apparent distress. Behavior is calm, cooperative, appropriate ko1 for age. Pain: Complains of pain in left ear. EENT: Reports pain in left ear. Historical: - Allergies: 14:37 laxatives; ko1 14:37 poisonIVY; ko1 - PMHx: 14:37 ADD/ADHD; Anxiety; Depression; ko1 - Immunization history:: Adult Immunizations up to date. - Infectious Disease History:: Denies. - Social history:: Smoking status: Patient denies any tobacco usage or history of. Screenin:48 [facility] ED Fall Risk Assessment (Adult) History of falling in the last 3 months, ko1 including since admission No falls in past 3 months (0 pts) Confusion or Disorientation No (0 pts) Intoxicated or Sedated No (0 pts) Impaired Gait No (0 pts) Mobility Assist Device Used No (0 pt) Altered Elimination No (0 pt) Score/Fall Risk Level 0 - 2 = Low Risk Oriented to surroundings, Maintained a safe environment, Educated pt \T\ family on fall prevention, incl call for assistance when getting out of bed, Assessed \T\ reinforced patient's understanding of fall precautions, Provided non-skid footwear, Hourly rounding (assess needs \T\ fall precautionary measures) done. Abuse screen: Denies threats or abuse. Denies injuries from another. Nutritional screening: No deficits noted. Tuberculosis screening: No symptoms or risk factors identified. Vital Signs: 14:36 BP 124 / 84; Pulse 72; Resp 18; Temp 98(O); Pulse Ox 100% on R/A; ko1 ED Course: 14:13 Patient arrived in ED. mg5 14:18 Julio Alexander PA is PHCP. cp 14:18 Andres Pino DO is Attending Physician. cp 14:37 Arm band placed on right wrist. Patient placed in waiting room, Patient notified of ko1 wait time. 14:37 Triage completed. ko1 14:43 Gail Ward MD is Referral Physician. cp 14:48 Patient has correct armband on for positive identification. Provided Education on: meds.ko1 14:48 No provider procedures requiring assistance completed. Patient did not have IV access ko1 during this emergency room visit. 14:48 Nickie Doe, RN is Primary Nurse. ko1 Administered Medications: No medications were administered Medication: 14:48 VIS not applicable for this client. ko1 Outcome: 14:45 Discharge ordered by MD. cp 14:48 Discharged to home ambulatory, with family, ko1 14:48 Condition: stable 14:48 Discharge instructions given to patient, family, Instructed on discharge instructions, follow up and referral plans. medication usage, Demonstrated understanding of instructions, follow-up care, medications, Prescriptions given X 2, 14:49 Patient left the ED. ko1 Signatures: Julio Alexander PA PA cp Nickie Doe, RN RN ko1 Irene Christopher mg5
[2024-01-16 15:01] VITALS: BP 124/84; TEMP 98; O2SAT 100
== END 2024-01-16 14:49 | disposition home or self-care (01) ==
LOC: ER 14:04
DX: H66.012 Acute suppurative otitis media with spontaneous rupture of ear drum, left ear (principal); Z88.8 Allergy status to other drugs, medicaments and biological substances; Z91.048 Other nonmedicinal substance allergy status
CPT/HCPCS: 99283

== ENCOUNTER 2024-05-03 17:58 | Emergency (ER) | payer OTHER ==
[2024-05-03 21:52] LABS: SARS-CoV-2 Antigen CONTROL BLUE LINE VIS/BG OK; SARS-CoV-2 Antigen Rapid Res Negative (Negative)
--- NOTE | 2024-05-03 22:33 | EDPHYS ---
Physician Documentation [facility] Name: Kina Martinez Age: 33 yrs Sex: Male : 1990 Arrival Date: 05/03/2024 Time: 17:58 Bed 11 Private MD: ED Physician Zeinab Martinez HPI: 05/03 18:50 This 33 yrs old Male presents to ER via Ambulatory with complaints of Flu Symptoms. cp 18:50 The patient or guardian reports cough. cp 18:50 Onset: The symptoms/episode began/occurred today. Associated signs and symptoms: cp Pertinent negatives: fever. Historical: - Allergies: 18:29 laxatives; cm10 18:29 poisonIVY; cm10 - PMHx: 18:29 ADD/ADHD; Anxiety; Depression; Schizoaffective disorder; Manic Depression; cm10 - PSHx: 18:29 None; cm10 - Immunization history:: Adult Immunizations up to date. - Infectious Disease History:: Denies. - Social history:: Smoking status: Patient reports the use of cigarette tobacco products, denies chronic smoking, but will smoke occasionally. ROS: 18:55 Constitutional: Negative for fever, poor PO intake, cp 18:55 Eyes: Negative for injury, pain, redness, and discharge, cp 18:55 Respiratory: Positive for cough, Negative for shortness of breath, wheezing, 18:55 Abdomen/GI: Negative for abdominal pain, cp 18:55 All other systems are negative, cp Exam: 19:00 Constitutional: The patient appears in no acute distress, alert, awake, non-toxic, well cp developed, well nourished, 19:00 Head/Face: Normocephalic, atraumatic. cp 19:00 Eyes: Periorbital structures: appear normal, Conjunctiva: normal, no exudate, no injection, Lids and lashes: appear normal, bilaterally, 19:00 ENT: External ear(s): are unremarkable, Nose: is normal, Mouth: Lips: moist, Oral mucosa: pink and intact, moist, Posterior pharynx: Airway: no evidence of obstruction, patent, 19:00 Chest/axilla: Inspection: normal, 19:00 Cardiovascular: Rate: normal, 19:00 Respiratory: the patient does not display signs of respiratory distress, Respirations: normal, no use of accessory muscles, no retractions, labored breathing, is not present, Breath sounds: are clear throughout, no decreased breath sounds, no stridor, no wheezing, 19:00 Abdomen/GI: Inspection: abdomen appears normal, Palpation: abdomen is soft and non-tender, in all quadrants, Vital Signs: 18:28 BP 121 / 89; Pulse 91; Resp 18 S; Temp 97.3(IR); Pulse Ox 97% on R/A; Weight 81.65 kg; cm10 Height 5 ft. 10 in. ; Pain 4/10; 21:33 BP 110 / 85; Pulse 71; Resp 16; Pulse Ox 99% on R/A; tl4 18:28 Body Mass Index 25.83 (81.65 kg, 177.8 cm) cm10 18:28 Pain Scale: Adult cm10 MDM: 18:42 Patient medically screened. cp 22:32 Data reviewed: vital signs, nurses notes, lab test result(s), and as a result, I will sb4 discharge patient. Counseling: I had a detailed discussion with the patient and/or guardian regarding the historical points, exam findings, and any diagnostic results supporting the discharge/admit diagnosis, lab results, to return to the emergency department if symptoms worsen or persist or if there are any questions or concerns that arise at home. 05/03 18:44 Order name: SARS RAPID; Complete Time: 22:04 cp 05/03 18:44 Order name: Influenza Screen (a \T\ B); Complete Time: 22:33 cp 05/03 18:44 Order name: Strep; Complete Time: 22:04 cp 05/03 21:53 Order name: Throat Culture EDMS Administered Medications: No medications were administered Disposition Summary: 05/03/24 22:32 Discharge Ordered Notes: Location: Home sb4 Problem: new sb4 Symptoms: are unchanged sb4 Condition: Stable sb4 Diagnosis - Viral infection, unspecified sb4 Followup: sb4 - With: Emergency Department - When: As needed - Reason: Trouble breathing, Worsening of condition Discharge Instructions: - Discharge Summary Sheet sb4 - 10 Things You Can Do to Manage Your COVID-19 Symptoms at Home - [facility] (03/09/2021) sb4 - Viral Illness, Adult sb4 Forms: - Work release form sb4 - Patient Portal Instructions sb4 - Leadership Thank You Letter sb4 Signatures: Dispatcher [employer] EDMS Page, Julio, Perla Yoo cp, GIOVANNY medina4 Kelly Perry, RN RN cm10
--- NOTE | 2024-05-03 22:33 | ER ---
Nurse's Notes [facility] Name: Kian Martinez Age: 33 yrs Sex: Male : 1990 Arrival Date: 05/03/2024 Time: 17:58 Bed 11 Private MD: Diagnosis: Viral infection, unspecified Presentation: 05/03 18:28 Chief complaint: Patient states: Bodyaches, cough, chills, diarrhea, fever, and cm10 sneezing onset 2 hrs ago. Coronavirus screen: Client denies travel out of the [place] in the last 14 days. Ebola Screen: Patient denies travel to an Ebola-affected area in the 21 days before illness onset. No symptoms or risks identified at this time. Initial Sepsis Screen: Does the patient meet any 2 criteria? HR > 90 bpm. Does the patient have a suspected source of infection? No. Patient's initial sepsis screen is negative. Risk Assessment: Do you want to hurt yourself or someone else? Patient reports no desire to harm self or others. Onset of symptoms was May 03, 2024. 18:28 Method Of Arrival: Ambulatory cm10 18:28 Acuity: OPAL 4 cm10 Triage Assessment: 18:30 General: Appears in no apparent distress. comfortable, Behavior is calm, cooperative. cm10 Neuro: No deficits noted. Level of Consciousness is awake, alert, obeys commands, Oriented to person, place, time, situation, Appropriate for age. Respiratory: No deficits noted. Airway is patent Respiratory effort is even, unlabored, Respiratory pattern is regular, symmetrical. Historical: - Allergies: 18:29 laxatives; cm10 18:29 poisonIVY; cm10 - PMHx: 18:29 ADD/ADHD; Anxiety; Depression; Schizoaffective disorder; Manic Depression; cm10 - PSHx: 18:29 None; cm10 - Immunization history:: Adult Immunizations up to date. - Infectious Disease History:: Denies. - Social history:: Smoking status: Patient reports the use of cigarette tobacco products, denies chronic smoking, but will smoke occasionally. Screenin:32 [facility] ED Fall Risk Assessment (Adult) History of falling in the last 3 months, tl4 including since admission No falls in past 3 months (0 pts) Confusion or Disorientation No (0 pts) Intoxicated or Sedated No (0 pts) Impaired Gait No (0 pts) Mobility Assist Device Used No (0 pt) Altered Elimination No (0 pt) Score/Fall Risk Level 0 - 2 = Low Risk Oriented to surroundings, Maintained a safe environment, Educated pt \T\ family on fall prevention, incl call for assistance when getting out of bed, Assessed \T\ reinforced patient's understanding of fall precautions. Abuse screen: Denies threats or abuse. Denies injuries from another. Nutritional screening: No deficits noted. Tuberculosis screening: No symptoms or risk factors identified. Assessment: 21:37 General: Appears in no apparent distress. Behavior is calm, cooperative. Pain: tl4 Complains of pain in generalized body aches. Neuro: Level of Consciousness is awake, alert, obeys commands, Oriented to person, place, time, situation. Cardiovascular: Capillary refill < 3 seconds Patient's skin is warm and dry. Respiratory: Reports cough that is Airway is patent Respiratory effort is even, unlabored, Respiratory pattern is regular, symmetrical. GI: Abd is soft and non tender Reports nausea, Patient currently denies intolerance of fluids, intolerance of food. : No signs and/or symptoms were reported regarding the genitourinary system. EENT: Reports nasal congestion nasal discharge pain when swallowing. Derm: No signs and/or symptoms reported regarding the dermatologic system. Musculoskeletal: No signs and/or symptoms reported regarding the musculoskeletal system. Vital Signs: 18:28 BP 121 / 89; Pulse 91; Resp 18 S; Temp 97.3(IR); Pulse Ox 97% on R/A; Weight 81.65 kg; cm10 Height 5 ft. 10 in. ; Pain 4/10; 21:33 BP 110 / 85; Pulse 71; Resp 16; Pulse Ox 99% on R/A; tl4 18:28 Body Mass Index 25.83 (81.65 kg, 177.8 cm) cm10 18:28 Pain Scale: Adult cm10 ED Course: 18:01 Patient arrived in ED. im 18:04 Julio Alexander PA is PHCP. cp 18:04 Zeinab Martinez MD is Attending Physician. cp 18:29 Triage completed. cm10 18:30 Arm band placed on right wrist. Patient placed in waiting room. cm10 20:08 PHCP role handed off by Julio Alexander PA sb4 20:08 Perla Up PA-C is PHCP. sb4 21:31 Strep Sent. tl4 21:31 Influenza Screen (a \T\ B) Sent. tl4 21:31 SARS RAPID Sent. tl4 21:31 No provider procedures requiring assistance completed. COVID swab sent to lab. Flu tl4 and/or RSV swab sent to lab. Strep swab sent to lab. Patient did not have IV access during this emergency room visit. 21:32 Patient has correct armband on for positive identification. Bed in low position. Call tl4 light in reach. Side rails up X 1. Adult w/ patient. Provided Education on: call bobby. Administered Medications: No medications were administered Medication: 21:32 VIS not applicable for this client. tl4 Outcome: 22:32 Discharge ordered by MD. sb4 22:52 Discharged to home ambulatory, tl4 22:52 Condition: stable 22:52 Discharge instructions given to patient, Instructed on discharge instructions, follow up and referral plans. Demonstrated understanding of instructions, follow-up care, 22:54 Patient left the ED. tl4 Signatures: Julio Alexander PA PA cp Brown, Sophia, PA-C PA-C sb4 Alanis Johnson Clarissa, RN RN cm10 Austin Hutchinson RN RN tl4 Corrections: (The following items were deleted from the chart) 21:39 21:32 Pain: Complains of pain in scalp tl4 tl4
[2024-05-04 00:14] VITALS: TEMP 97.3
[2024-05-04 00:16] VITALS: BP 110/85; O2SAT 99
== END 2024-05-03 22:54 | disposition home or self-care (01) ==
LOC: ER 17:58
DX: B34.9 Viral infection, unspecified (principal); Z11.52 Encounter for screening for COVID-19; F17.210 Nicotine dependence, cigarettes, uncomplicated
CPT/HCPCS: 36415; 87070; 87081; 87804; 87811; 99283